=== PATIENT | female | born 1940 | race Caucasian/White ===

== ENCOUNTER → 2022-01-27 | Outpatient (CLI) | payer MEDICARE ==
[~2022-01-27] VITALS: Ht 157.5 cm; Wt 68.2 kg
[~2022-01-27] MED LIST: LIDOCAINE 1% INJ 20 ML VIAL INJ ONE
--- NOTE | 2022-01-27 15:36 | Diagnostic Imaging Report ---
INDICATION: Right lobe thyroid nodule. Patient presents for fine-needle aspiration and Rotex biopsy using ultrasound guidance. PROCEDURE: Patient was brought to the procedure room and placed on table in the supine position. Ultrasound imaging of the right neck was performed to evaluate appropriate entry site. Right neck was then prepped and draped in the usual sterile fashion. Small amount of 1% lidocaine was utilized for local anesthesia. A total of four passes were made into the dominant solid nodule in the upper pole of the right lobe of the thyroid utilizing 25-gauge needles and fine-needle aspiration technique. A signal pass was made with a Rotex needle and Rotex biopsy was performed. Hemostasis was obtained. Patient tolerated the procedure well. IMPRESSION: Successful ultrasound-guided fine-needle aspiration and Rotex biopsy of upper pole right lobe thyroid nodule. Pathology results are currently pending. Dictated by: Dictated on workstation # [id number]
--- NOTE | 2022-01-27 15:39 | Diagnostic Imaging Report ---
INDICATION: Right lower pole thyroid lobe nodule. Patient presents for ultrasound-guided fine-needle aspiration and Rotex biopsy. FINDINGS: Patient was brought to the procedure room, placed on table in the supine position. Ultrasound imaging of the right neck was performed to evaluate appropriate entry site. Right neck was prepped and draped in the usual sterile fashion. Small amount of 1% lidocaine was utilized for local anesthesia. A total of four passes were made into the mixed solid and cystic nodule in the lower pole of the right lobe of the thyroid utilizing 25-gauge needles and fine-needle aspiration technique. A single pass was made with a Rotex needle and Rotex biopsy was performed. Hemostasis was obtained. Patient tolerated the procedure well and left the department in stable condition. IMPRESSION: Successful ultrasound-guided fine-needle aspiration and Rotex biopsy of lower pole mixed solid and cystic nodule in the right lobe of the thyroid. Pathology results are currently pending. Dictated by: Dictated on workstation # [id number]
== END ==
LOC: RAD 14:00
PROVIDERS: ATTEND Otolaryngology Otolaryngology/Facial Plastic Surgery
DX: E04.2 Nontoxic multinodular goiter (principal)
CPT/HCPCS: 10005; 10006; 88173; 88305